=== PATIENT | male | born 1945 | race Caucasian/White ===

== ENCOUNTER 2019-02-02 08:47 | Day surgery (SDC) | payer MEDICARE, SELFPAY ==
[2019-02-02 09:16] VITALS: BP 118/74; PULSE 85; RESP 15; TEMP 36.6; O2SAT 98; BMI 25.5
[2019-02-02] MEDS: SODIUM CHLORIDE 0.9% 1,000 ML 200 ML IV (09:31)
--- NOTE | 2019-02-02 10:43 | PM.HP.1 ---
History of Present Illness History of Present Illness Date Patient Seen: 02/02/19 Time Patient Seen: 10:43 Chief complaint: [id number] Narrative: This is a 73-year-old man with a history of screening colonoscopy after which he was told he needed a repeat colonoscopy in 10 years. He denies any hematochezia, melena, unexplained abdominal pain or unexplained weight loss since that time. He has no significant family history of polyps or colon cancers. He is otherwise healthy healthy this never had a heart attack or stroke, but does have diabetes and hypertension. ROS: Thirteen system review is negative other than as mentioned below and in HPI. PE: GENERAL: Well groomed and cooperative. Appears stated age. Answers questions promptly and appropriately. Vital signs noted. HENT: Normocephalic, atraumatic. Hearing intact. Oral mucosa is pink and moist. EYES: Conjunctiva pink, sclera white, no periorbital swelling. CARDIOVASCULAR: Regular rate. No pedal edema. RESPIRATORY: Normal respiratory rate, breathing comfortably on room air. GASTROINTESTINAL: Abdomen soft and non-distended GENITALURINARY: No flank tenderness. MUSCULOSKELETAL: Equal tone and mass bilaterally. SKIN: Warm, dry, soft, appropriate color for ethnicity. No other lesions, rashes, or wounds. NEURO: Alert and Oriented X 3. No gross sensory deficits, or cognitive issues. PSYCH: Appropriate affect and mood. Patient History Medical History Diabetes type 2, controlled (Acute) Family & Social History Social History: household members spouse Meds Home Medications and Allergies Home Medications Medication Instructions Recorded Confirmed Type aspirin 81 mg PO DAILY 02/02/19 02/02/19 History lisinopril 20 mg PO QPM 02/02/19 02/02/19 History metformin 1,000 mg PO BID 02/02/19 02/02/19 History simvastatin 20 mg PO BEDTIME 02/02/19 02/02/19 History Allergies Allergy/AdvReac Type Severity Reaction Status Date / Time No Known Drug Allergies Allergy Verified 02/02/19 09:13 Exam Vital Signs (past 8 hours): - 02/02/19 09:16 Temperature 97.8 F Pulse Rate 85 Respiratory Rate 15 Blood Pressure 118/74 Pulse Oximetry 98 Oxygen Delivery Method Room Air Assessment & Plan Assessment & Plan narrative: This is a 73-year-old man with history of a normal screening colonoscopy 10 years ago. He is here for follow-up colonoscopy screening. Risks and benefits of colonoscopy including risk of bleeding, perforation were discussed and the patient would like to proceed with his colonoscopy procedure. Quality VTE Deep Vein Thrombosis/Pulmonary Embolism Present on Admission: No
[2019-02-02] MEDS: MIDAZOLAM 5 MG/5 ML VIAL IV (11:08)
[2019-02-02] MEDS: fentaNYL 250 MCG/5 ML INJ IV (11:08)
--- NOTE | 2019-02-02 11:08 | PM.OP.ENDO ---
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 A time-out was performed and then the patient was given procedural sedation starting with 4 mg of Versed and 100 mcg of fentanyl. Vitals were monitored throughout the procedure and remained stable. Once adequately sedated the procedure was begun. A rectal exam was performed revealing no abnormalities. The colonoscope was then introduced to the rectum and advanced to the cecum in the usual fashion. The cecum was identified by the appendiceal orifice, the mucosal try fold, and the ileocecal valve. The cecum was abnormal. Surrounding the orifice of the appendix there was a ballooning of the mucosa, concerning for possible mucinous appendix. The scope was then retracted while rotating side to side and examining each mucosal fold. A few scattered diverticula were seen. At the conclusion procedure retroflexion was performed and small grade 1-2 internal hemorrhoids without stigmata of bleeding were seen. The scope was then withdrawn from the rectum the procedure was concluded. The patient tolerated the procedure well was transferred to the PACU in stable condition. 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 A few scattered diverticula, and low-grade internal hemorrhoids. Post-procedure Recommendations: Colonscopy in 10 years and Other recommendation (Follow-up CT scan of the abdomen and pelvis with IV contrast to evaluate for mucinous appendix) Follow up: weeks (Two weeks to discuss results of CT scan.) Disposition: PACU
[2019-02-02 11:12] VITALS: BP 111/79; PULSE 73; RESP 11; O2SAT 94
[2019-02-02 11:16] VITALS: BP 117/75; PULSE 75; RESP 17; TEMP 36.1; O2SAT 95
[2019-02-02 11:26] VITALS: BP 115/84; PULSE 76; RESP 11; O2SAT 94
[2019-02-02 11:40] VITALS: BP 118/68; PULSE 72; RESP 15; TEMP 36.2; O2SAT 94
== END 2019-02-02 11:55 | disposition home or self-care (01) ==
PROVIDERS: PCP Family Medicine; Visit Provider Surgery
PROC: 0DJD8ZZ Inspection of Lower Intestinal Tract, Via Natural or Artificial Opening Endoscopic (ICD-10-PCS; CPT 45378; principal; 2019-02-02 10:45)
DX: Z12.11 Encounter for screening for malignant neoplasm of colon (principal); K57.30 Diverticulosis of large intestine without perforation or abscess without bleeding; K64.0 First degree hemorrhoids; E11.9 Type 2 diabetes mellitus without complications; Z79.84 Long term (current) use of oral hypoglycemic drugs; K38.8 Other specified diseases of appendix
CPT/HCPCS: G0121; 99152; J2250; J3010